=== PATIENT | male | born 1990 | race Caucasian/White ===

== ENCOUNTER 2022-07-10 13:54 | Emergency (ER) | payer OTHER, SELFPAY ==
[2022-07-10 13:55] VITALS: BP 144/85; PULSE 88; RESP 16; TEMP 36.3; O2SAT 100; BMI 30.7
--- NOTE | 2022-07-10 14:10 | EKG12_ITS ---
Test Reason : PALP Blood Pressure : / mmHG Vent. Rate : 077 BPM Atrial Rate : 077 BPM P-R Int : 152 ms QRS Dur : 094 ms QT Int : 304 ms P-R-T Axes : 039 026 030 degrees QTc Int : 344 ms Normal sinus rhythm Low voltage QRS (Limb Leads) Nonspecific T wave abnormality Abnormal ECG Confirmed by GARRY THOMPSON, RYAN ([id number]), marketing editor OSCAR EVANGELISTA ([id number]) on 07/12/2022 9:46:28 AM Referred By: WOODY/PARADISE Confirmed By:RYAN CASTAÑEDA MD
--- NOTE | 2022-07-10 14:15 | RAD_ITS ---
HISTORY: SOB. TECHNIQUE: XR Chest 1 View. COMPARISON: None. FINDINGS: CARDIOMEDIASTINAL BORDERS: Cardiac silhouette within normal limits in size. Mediastinal contour unremarkable. LUNGS: Radiographically clear. PLEURA: No pleural effusion or pneumothorax seen. OSSEOUS STRUCTURES: Unremarkable. RAD/Chest 1 View (Portable) IMPRESSION: No acute cardiopulmonary process identified. Electronically Signed: Diane Black MD at 14:28 EDT ,
[2022-07-10 14:42] VITALS: BP 140/87; PULSE 58; RESP 12; O2SAT 99
[2022-07-10 14:44] VITALS: O2SAT 99
[2022-07-10 14:52] LABS: Absolute Lymphocyte Count 2.38 X10^3/uL (0.83-4.51); Basophil# 0.04 X10^3/uL; Basophil% 0.5 % (0-1); Eosinophil# 0.04 X10^3/uL; Eosinophils% 0.5 % (0-5); Hematocrit 49.1 % (40-54); Hemoglobin 16.5 g/dL (13.0-16.5); Lymphocyte # 2.38 X10^3/ul (0.83-4.51); Lymphocyte % 29.9 % (19-41); Mean Corp Hgb Conc 33.6 g/dL (32-36); Mean Corpuscular Hgb 29.5 pg (27.0-32.0); Mean Corpuscular Volume 87.7 fL (80-94); Mean Platelet Vol. 8.8 fl (6.2-12.0); Monocyte% 6.3 % (0-10); NRBC Flagged by Analyzer 0 % (0-5); Neutrophil # 4.98 X10^3/uL (2.7-7.7); Neutrophil % 62.5 % (47-70); Platelet Count 237 K/mm3 (150-450); RBC Distribution Width CV 13.3 % (11.6-14.6); RBC Distribution Width SD 42.6 fl (35.1-43.9)
[2022-07-10 15:10] LABS: Anion Gap 8 (5-15); BUN 12 mg/dL (7-18); BUN/Creat Ratio 10.5 RATIO (10-20); Calcium,Total 9.3 mg/dL (8.5-10.1); Chloride 102 mmol/L (98-107); Creatinine, Serum 1.14 mg/dL (0.70-1.30); EST Glomerular Filtration Rate 80 mL/min (>60); Est Glom Filt Rate - Afr Amer 97 mL/min (>60); Glucose 100 mg/dL (74-106); Potassium 4.1 mmol/L (3.5-5.1); Sodium Level 137 mmol/L (136-145); Troponin-I HS 3 pg/mL (3.0-78.0)
--- NOTE | 2022-07-10 15:45 | EDS_ITS ---
HPI History of Present Illness Chief Complaint: General Illness Narrative Narrative: 32-year-old male with no significant medical history presenting with a little bit of fatigue. He states that he just felt off this morning. He was a little lightheaded for short while. He states that this weekend he was feeling a little bit short of breath but then he was able to walk outside and uphill without any difficulty. He did not have any chest pain. He has concern that he has Lyme disease. He states that he had to rashes last year from tick bites. The first time he had this he went online and got an online prescription for doxycycline. The second time he had this he started to take doxycycline and then had allergic reaction to it. He states he had to stop and then was given another antibiotic which she cannot recall. He is concerned that he might have Lyme disease. He denies any fevers, chills, night sweats. No recent tick bites. PFSH PFSH Allergy/AdvReac Type Severity Reaction Status Date / Time doxycycline Allergy Rash Verified 07/10/22 13:57 mushroom [mushrooms] Allergy Upset Verified 07/10/22 13:57 Stomach Social History Smoking Status: Never smoker ROS ROS ED Review of Systems ROS Unobtainable: Denies due to encephalopathy Constitutional Constitutional ED: Denies chills or fever(s) EXAM Physical Exam Const Vital Signs: 07/10/22 13:55 07/10/22 14:34 07/10/22 14:42 Temperature 97.4 F L Temperature Source Temporal Pulse Rate 88 58 L Respiratory Rate 16 12 Respiratory Effort Normal Non-Labored Short of Breath Respiratory Pattern Normal Blood Pressure 144/85 H 140/87 H Blood Pressure Mean 104 104 Pulse Ox 100 99 Oxygen Delivery Method Room Air Room Air 07/10/22 14:42 07/10/22 14:44 Temperature Temperature Source Pulse Rate Respiratory Rate Respiratory Effort Respiratory Pattern Blood Pressure Blood Pressure Mean Pulse Ox 99 99 Oxygen Delivery Method Room Air Positive well nourished General Appearance ED: NAD; Negative for pallor HEENT Reports moist mucous membranes Eyes PERRL and EOMs intact bilaterally General Eye ED: Negative for pale conjunctiva or scleral icterus Chest Wall inspection of chest normal Resp normal respiratory effort and clear to auscultation bilaterally Auscultation: Negative for rales, rhonchi or wheezes Cardio regular rate and regular rhythm Neuro oriented x3 and CN's II-XII intact bilaterally Motor Exam: strength 5/5 throughout Psych mental status grossly normal Skin no rashes or lesions noted General Skin Exam: Negative for jaundice or pallor MDM MDM MDM Narrative Medical decision making narrative: This is a well-appearing male with intermittent shortness of breath. He does not have any chest pain. He is not had any fever, chills, night sweats. His physical exam is unremarkable. Lungs clear to auscultation. Heart regular rate and rhythm. Vital signs otherwise stable. He states that he was at the urgent care just wanted to get checked out and he was referred to the emergency room. I have low suspicion for anything serious given his examination and his history but he was stating that he was short of breath. I did obtain an EKG which on my interpretation shows a normal sinus rhythm with a ventricular rate of 77 bpm. Chest x-ray shows no acute process on my interpretation. Radiology interpretation agrees. CBC, BMP are unremarkable. High-sensitivity troponin is 3. Patient is PERC negative. I have a low suspicion for Lyme disease as well given his presentation but patient does want to have his blood tested. I did send a Lyme titer. He understands this will come back today patient discharged in stable condition. Impression: 1. Dyspnea 2. Generalized weakness 3. History of tick bite Lab Data Attestation: I reviewed the patient's lab results. Labs: Laboratory Results - last 24 hr 07/10/22 07/10/22 14:40 14:40 WBC 8.0 RBC 5.60 Hgb 16.5 Hct 49.1 MCV 87.7 MCH 29.5 MCHC 33.6 RDW Std Deviation 42.6 RDW Coeff of Sunday 13.3 Plt Count 237 MPV 8.8 Immature Gran % (Auto) 0.300 Neut % (Auto) 62.5 Lymph % (Auto) 29.9 [place] % (Auto) 6.3 Eos % (Auto) 0.5 Baso % (Auto) 0.5 Absolute Neuts (auto) 5.0 Absolute Lymphs (auto) 2.38 Nucleated RBC % 0 Sodium 137 Potassium 4.1 Chloride 102 Carbon Dioxide 27.0 Anion Gap 8 BUN 12 Creatinine 1.14 Estim Creat Clear Calc 104.00 Est GFR (MDRD) Af Amer 97 Est GFR (MDRD) Non-Af 80 BUN/Creatinine Ratio 10.5 Glucose 100 Calcium 9.3 Troponin I High Sens 3 Radiography Diagnostic Testing: Clinical Impression(s) from Imaging Studies Chest X-Ray 07/10/22 14:15 IMPRESSION: No acute cardiopulmonary process identified. Electronically Signed: Diane Black MD at 14:28 EDT Reading Location ID and State: [facility] / [place] Tel , Service support , Discharge Plan Triage Chief Complaint: General Illness ED Provider: Jethro Reza Dx/Rx/DC Orders Instructions: ED Dyspnea, ED Weakness (Uncertain Cause) Stand Alone Forms: ED Work / School Excuse Primary Care Provider: NOT,DEFINED Referrals: NOT,DEFINED [Primary Care Provider] - Disposition Disposition: Home, Self Care
[2022-07-10 16:13] VITALS: O2SAT 97
[2022-07-10 16:24] VITALS: BP 124/79; PULSE 82; RESP 16; O2SAT 98
== END 2022-07-10 16:24 | disposition home or self-care (01) ==
LOC: ED 15:55
PROVIDERS: Emergency Provider Student in an Organized Health Care Education/Training Program; Visit Provider Student in an Organized Health Care Education/Training Program
DX: R06.00 Dyspnea, unspecified (principal); R53.1 Weakness
CPT/HCPCS: 71045; 80048; 84484; 85025; 86618; 93005; 94760; 99282